=== PATIENT | female | born 1980 | race African-American/Black ===

== ENCOUNTER → 2020-03-21 | Outpatient (CLI) | payer MEDICAID ==
[~2020-03-21] VITALS: Ht 167.6 cm; Wt 99.8 kg
[~2020-03-21] MED LIST: ALBUAER3 IN
== END | disposition home or self-care (01) ==
LOC: SUR 09:05 → EDSTATUS 03-27 08:00
PROVIDERS: ATTEND Orthopaedic Surgery Adult Reconstructive Orthopaedic Surgery
DX: Z01.818 Encounter for other preprocedural examination (principal); M70.21 Olecranon bursitis, right elbow; J45.909 Unspecified asthma, uncomplicated; E66.9 Obesity, unspecified; F17.200 Nicotine dependence, unspecified, uncomplicated; Z20.828 Contact with and (suspected) exposure to other viral communicable diseases; Z90.49 Acquired absence of other specified parts of digestive tract; Z98.890 Other specified postprocedural states; Z98.84 Bariatric surgery status; Z68.35 Body mass index [BMI] 35.0-35.9, adult